=== PATIENT | male | born 1970 | race Caucasian/White ===

== ENCOUNTER 2016-10-28 11:26 | Outpatient (CLI) | payer BC ==
[~2016-10-28] VITALS: Ht 175.3 cm; Wt 137.7 kg
[2016-10-28 11:39] VITALS: BP 120/84
[2016-10-28] MEDS ORDERED: ROSU20TA PO (12:01)
[2016-10-28] MEDS ORDERED: HYDR25TA4 PO (12:01)
[2016-10-29] MEDS ORDERED: HYDR-3816 PO (11:52)
== END 2016-10-28 11:58 ==
LOC: PREOP 11:26
PROVIDERS: ATTEND Surgery
DX: Z01.818 Encounter for other preprocedural examination (principal); Z11.2 Encounter for screening for other bacterial diseases; D22.72 Melanocytic nevi of left lower limb, including hip
CPT/HCPCS: 87081

== ENCOUNTER 2016-10-29 08:21 | Day surgery (SDC) | payer BC ==
[~2016-10-29] VITALS: Ht 175.3 cm; Wt 137.7 kg
[~2016-10-29 08:21] MED LIST: HYDR25TA4 PO; ROSU20TA PO
[2016-10-29] MEDS: LACTATED RINGERS 1,000 ML IV PRN ×2 (08:30→11:05)
[2016-10-29] MEDS ORDERED: ceFAZolin 1 GM/NS 50 ML IVPB IV ONE ×2 (08:30)
[2016-10-29 09:15] VITALS: BP 139/92
[2016-10-29] MEDS ORDERED: BUP/EPI 0.5% 1:200,000 (MARCAINE) 10ML VIAL IJ ONE (09:28)
--- NOTE | 2016-10-29 10:01 | Progress Note-Pre Operative ---
Pre-Operative Progress Note H&P Reviewed The H&P was reviewed, patient examined and no changes noted. Date Seen by Provider: Oct 29, 2016 Time Seen by Provider: 10:00 Date H&P Reviewed: Oct 29, 2016 Time H&P Reviewed: 10:00 Pre-Operative Diagnosis: large symptomatic left leg melonocytic nevus ADDI KENNEDY MD Oct 29, 2016 10:01 am
[2016-10-29] MEDS ORDERED: MIDAZOLAM 10 MG/2 ML (VERSED) VIAL ONE (10:05)
[2016-10-29] MEDS ORDERED: morphine INJ 10 MG/ML 1ML (SYR OR VIAL) IVP PRN (10:15)
[2016-10-29] MEDS ORDERED: ACETAMINOPHEN 325 MG TABLET/CAPLET (TYLENOL) PO PRN (10:15)
[2016-10-29] MEDS ORDERED: HYDROcodone/APAP 5 MG/325 MG (LORTAB) TAB PO ONE (10:15)
[2016-10-29] MEDS ORDERED: FAMOTIDINE 20MG/2ML IV (PEPCID) IV ONE (10:15)
[2016-10-29] MEDS ORDERED: ONDANSETRON 4 MG/2 ML (SDV) Z0FRAN IVP PRN (10:15)
[2016-10-29] MEDS ORDERED: BUPIVACAINE 0.5% 30 ML (SENSORCAINE) VIAL ONE (10:48)
[2016-10-29] MEDS ORDERED: LACTATED RINGERS 2,000 ML IV ONE (11:12)
--- NOTE | 2016-10-29 11:51 | Progress Note-Post Operative ---
Post-Operative Progess Note Surgeon (s)/Data Solutions Architect (s) Surgeon ADDI KENNEDY MD Data Solutions Architect: nadeem alvarez APRN Pre-Operative Diagnosis large symptomatic left leg melonocytic nevus Post-Operative Diagnosis same (7x3.5cm) Procedure & Operative Findings Date of Procedure 10/29/16 Procedure Performed/Findings excision skin lesion left leg(7x3.5cm) and full thickness skin graft. Anesthesia Type spinal with local Estimated Blood Loss Estimated blood loss (mL): minimal Specimens/Packing Specimens Removed left leg skin lesion ADDI KENNEDY MD Oct 29, 2016 11:51 am
[2016-10-29] MEDS ORDERED: HYDR-3816 PO (11:52)
--- NOTE | 2016-10-29 11:53 | Discharge Inst-Surgical ---
D/C Lap Instructions-BRENT New, Converted, or Re-Newed RX: RX on Chart Follow Up Appt 10 days Activity as tolerated Regular Diet Symptoms to Report: Fever over 101 degree F, Nausea/Vomiting Infection Signs and Symptoms to report: Increased redness, Foul odor of wound, Increased drainage Bathing instructions: May shower Operative Area Clean/Dry; Keep incision clean/dry If any problems/questions: Contact your physician or go to Emergency Room ADDI KENNEDY MD Oct 29, 2016 11:53 am
[2016-10-29 12:30] VITALS: BP 136/86
[2016-10-29 13:00] VITALS: BP 140/88
[2016-10-29 13:30] VITALS: BP 138/88
[2016-10-29 15:46] VITALS: BP 138/88
--- NOTE | 2016-10-30 10:17 | OPERATIVE REPORT ---
PROCEDURE PHYSICIAN: ADDI PARIKH DATE OF PROCEDURE: 10/29/2016 ATTENDING PRIMARY CARE PHYSICIAN: Dr. Merrick Baron. PREOPERATIVE DIAGNOSIS: Symptomatic melanocytic nevus of the left lower extremity. POSTOPERATIVE DIAGNOSIS: Symptomatic melanocytic nevus of the left lower extremity with the dimensions of the lesion 7 x 3.5 cm in size. PROCEDURE: Excision of skin lesion 7 x 3.5 cm in size, as well as full-thickness skin graft taken from the left lateral thigh. SURGEON: Dr. Parikh. M[employer]ER [employer]: Zelalem Quijano APRN. ANESTHESIA: Monitored anesthesia care with spinal and local. ESTIMATED BLOOD LOSS: Minimal. 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 DISPOSITION: The patient tolerated the procedure well. Mr. Rayshawn Avalos is a 46-year-old male with a lesion of the left lower extremity along the medial aspect of the terry. He states that he has had the lesion as long as he can remember; however, in recent years, he has noticed increase in size and it has become raised and hyperkeratotic. The lesion was biopsied by his physician and the biopsy results came back as a melanocytic nevus. PROCEDURE: The patient was brought to the operating room and laid supine on the table. After adequate IV pain and sedative medications and monitored anesthesia care, a spinal anesthesia was also performed. After this, the left lower extremity was prepped and draped in standard surgical fashion. 0.5% Marcaine with epinephrine was then used to anesthetize the overlying skin of the lesion. The lesion was measured out and found to be 7 x 3.5 cm in size. The lesion was then fully excised excising all layers of the skin until the subcutaneous tissue was reached using a 15 blade. Good hemostasis was obtained using electrocautery. In this opening a saline soaked sponge was placed. We then proceeded with our graft donor site, which was taken of the left lateral and distal thigh. An elliptical shaped matching piece was measured and anesthetized using 0.5% Marcaine without epinephrine. The skin incision was made using a 15 blade. Full-thickness skin layer was excised until the subcutaneous fat was identified using a 15 blade. The graft was then placed into the defect of the left terry using interrupted as well as running 4-0 Prolene sutures with visualization of good hemostasis. Superior and inferior skin flaps were then created using electrocautery. The subcutaneous tissue was then reapproximated using 3-0 Vicryl interrupted sutures. Skin was closed using 4-0 Monocryl running subcuticular suture followed by Dermabond. The graft site was covered with Adaptic, followed by gauze and Kerlix wrap. The patient tolerated the procedure well. We will have him follow-up in the office in approximately 7 to 10 days. He will be instructed to keep the graft site clean and dry and to keep the dressing on for the next 24 hours and then he may remove the dressing and shower and then apply a nonstick Adaptic dressing followed by gauze, followed by Kerlix on a daily basis until seen in the office. Job ID: [id number] Dictated Date: 10/29/2016 12:00:41 Advanced Manager Date: 10/30/2016 10:02:59 / [email or web address]
== END 2016-10-29 15:45 | disposition home or self-care (01) ==
LOC: SDC 08:21
PROVIDERS: ATTEND Surgery
DX: D22.72 Melanocytic nevi of left lower limb, including hip (principal); E78.00 Pure hypercholesterolemia, unspecified; E66.01 Morbid (severe) obesity due to excess calories; Z68.41 Body mass index [BMI] 40.0-44.9, adult; Z79.899 Other long term (current) drug therapy